=== PATIENT | female | born 1940 | race Caucasian/White ===

== ENCOUNTER 2018-03-31 09:16 | Day surgery (SDC) | payer OTHER ==
[~2018-03-31] VITALS: Ht 165.1 cm; Wt 83.5 kg
[~2018-03-31 09:16] MED LIST: ALEN70; ASPI325 PO; ASPI81CH PO; ASPI81EC PO; ATEN25 PO; ATEN50 PO; B-COMPLEX WITH1 EAC1 PO; CALCIUM + D PO; CALCIUM PO; CELE200 PO; CHOL10002 PO; CIPR500 PO; Coq-10100 MG PO; Desyrel50 MG PO; EXTRA STRENGTH500 MG PO; FISH1000 PO; FLAX PO; FLUO20; FLUO20 PO; HYDACE5 PO; HYDR1TAB94 PO; Hair, Skin & N1 EACH PO; IBUP800; IBUP800 PO; IBUPROFEN PO; LEVSOD100; LEVSOD100 PO; MELA3 PO; Multi-Day Vita1 EACH PO; NITR100 PO; OMEP20ER; OMEP20ER PO; OXYC5 PO; Omeprazole20 M1 PO; POTASSIUM GLU PO; PRAV20 PO; PROM25 PO; PYRI100 PO; Prozac PO; Prozac20 MG PO; SOLI5 PO; TRAZ50; TRAZ50 PO; UBID10 PO; VITAMIN B12 PO; VITAMIN B122500 MC1 PO; VITAMINS; XARELTO10 MG; [UNRECOGNIZED DRUG - REMARK]
== END 2018-03-31 12:12 | disposition home or self-care (01) ==
LOC: ORSCSDS 09:16
PROVIDERS: Internal Medicine Gastroenterology
PROC: 0DB58ZX Excision of Esophagus, Via Natural or Artificial Opening Endoscopic, Diagnostic (ICD-10-PCS; principal; 2018-03-31 10:30)
PROC: 0DBN8ZX Excision of Sigmoid Colon, Via Natural or Artificial Opening Endoscopic, Diagnostic (ICD-10-PCS; principal; 2018-03-31 10:30)
DX: K22.70 Barrett's esophagus without dysplasia (principal); K21.9 Gastro-esophageal reflux disease without esophagitis; Z12.11 Encounter for screening for malignant neoplasm of colon; Z86.010 Personal history of colon polyps; K63.5 Polyp of colon; K57.30 Diverticulosis of large intestine without perforation or abscess without bleeding; E03.9 Hypothyroidism, unspecified; I48.91 Unspecified atrial fibrillation; I10 Essential (primary) hypertension; I25.10 Atherosclerotic heart disease of native coronary artery without angina pectoris; J44.9 Chronic obstructive pulmonary disease, unspecified; Z99.81 Dependence on supplemental oxygen; Z79.899 Other long term (current) drug therapy; Z79.82 Long term (current) use of aspirin

== ENCOUNTER 2023-12-16 07:51 | Day surgery (SDC) | payer OTHER ==
[~2023-12-16] VITALS: Ht 165.1 cm; Wt 89.0 kg
[~2023-12-16 07:51] MED LIST changes: +Balanced Salt Epinephrine Irrigation Solution 500 mL IR SCH; +Coumadin2 MG; +LETROZOLE2.5 M3 PO; +LEVSOD88 PO; +Lidocaine HCl/Pf 1% 5 ML VIAL ONE; +Lidocaine HCl/Pf 1% 5 ML VIAL XX SCH; +MEMA10; +METF500; +METO50ER PO; +Moxifloxacin HCL 0.5 MG/0.1 ML 0.4MLSYR RIGHTEYE SCH; +NS 500 ML IV ONE; +PANTOPRAZOLE SO40 M2 PO; +PHENYLEPHRINE\\TROPICAMIDE\\TETRACAINE OPHTHALMIC DILATING SOLN RIGHTEYE PRN; +Povidone-Iodine 450 DROP/30 ML Solution ONE; +Povidone-Iodine 450 DROP/30 ML Solution RIGHTEYE SCH; +TOLT4; +TRAM50
[2023-12-16] MEDS ORDERED: FentaNYL Citrate 50 MCG/ML 2 ML Injection ONE (08:19)
[2023-12-16] MEDS ORDERED: Midazolam HCl 1MG / ML 2ML Vial ONE (08:19)
--- NOTE | 2023-12-16 08:34 | NUR ---
12/16/23 0834 Pilar Aponte AT [id number] [id number]
[2023-12-16] MEDS ORDERED: NS 500 ML IV ONE (08:41)
[2023-12-16] MEDS ORDERED: Tetracaine HCl 0.5% Opth Soln 15 ml RIGHTEYE ONE (08:59)
[2023-12-16 09:57] VITALS: BP 127/76
--- NOTE | 2023-12-16 14:40 | NUR ---
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
== END 2023-12-16 09:46 | disposition home or self-care (01) ==
LOC: ORSCSDS 07:51
PROVIDERS: Student in an Organized Health Care Education/Training Program
PROC: 08RJ3JZ Replacement of Right Lens with Synthetic Substitute, Percutaneous Approach (ICD-10-PCS; principal; 2023-12-16 09:00)
DX: E11.36 Type 2 diabetes mellitus with diabetic cataract (principal); H25.11 Age-related nuclear cataract, right eye; Z96.1 Presence of intraocular lens; I10 Essential (primary) hypertension; I48.91 Unspecified atrial fibrillation; G47.33 Obstructive sleep apnea (adult) (pediatric); Z85.3 Personal history of malignant neoplasm of breast; E78.5 Hyperlipidemia, unspecified; Z68.32 Body mass index [BMI] 32.0-32.9, adult; Z79.01 Long term (current) use of anticoagulants; Z79.84 Long term (current) use of oral hypoglycemic drugs; Z79.899 Other long term (current) drug therapy
CPT/HCPCS: 82947; J2001; J2250; J3010; J7040; V2632